=== PATIENT | male | born 1990 | race Caucasian/White ===

== ENCOUNTER 2016-08-25 16:46 | Emergency (ER) | payer OTHER ==
[~2016-08-25] VITALS: Ht 175.3 cm; Wt 100.0 kg
[2016-08-25 16:58] VITALS: BP 130/88
[2016-08-25] MEDS ORDERED: DEXAMETHASONE SOD PHOS 4 MG/ML VIAL IM ONE (17:30)
== END 2016-08-25 17:47 | disposition home or self-care (01) ==
LOC: EMS 16:46
DX: L23.9 Allergic contact dermatitis, unspecified cause (principal); B86 Scabies; F12.90 Cannabis use, unspecified, uncomplicated
CPT/HCPCS: 96372; 99283; J1100